=== PATIENT | female | born 1945 ===

== ENCOUNTER → 2016-07-21 | Outpatient (REF) | payer MEDICARE ==
[2016-07-21 13:55] LABS: BLOOD UREA NITROGEN 13 MG/DL (7-18); CREATININE FOR GFR 0.75 MG/DL (0.55-1.02); GLOMERULAR FILTRATION RATE > 60.0 (>39)
== END ==
LOC: M LABDRAW1 12:53
PROVIDERS: ATTEND Orthopaedic Surgery
DX: M54.5 Low back pain (principal)